=== PATIENT | male | born 1960 | race Caucasian/White ===

== ENCOUNTER 2019-06-19 16:47 | Emergency (ER) | payer BC, OTHER ==
--- NOTE | 2019-06-19 16:56 | ED Physician Documentation ---
PD HPI LOWER EXT INJURY - Stated complaint Stated Complaint: RIGHT LEG PX/KNEE PX - History obtained from History obtained from: Patient - History of Present Illness PD HPI LOW EXT INJURY LOCATION: Right, Upper leg, Knee Type of injury: Twist (he had felt tightness in hamstrings/posterior thigh for couple of weeks. Walking up onto busstep at work, he felt a snap/abrupt pain posterolateral knee, and has pain with walking since. Pain flexing knee. No feeling of giving out.) Where injury occurred: Work (getting off work) Timing - onset: Today Timing - details: Abrupt onset, Still present Worsened by: Moving, Other (weight bearing straight legged.) Associated symptoms: No: Weakness, Numbness, Swelling Similar symptoms before: Has not had sx before Recently seen: Not recently seen Review of Systems Constitutional: denies: Fever, Chills Skin: denies: Rash, Lesions Neurologic: denies: Focal weakness, Numbness PD PAST MEDICAL HISTORY - Past Medical History Cardiovascular: None Respiratory: None Endocrine/Autoimmune: None GI: None : None HEENT: None Psych: None Musculoskeletal: Other Derm: None - Past Surgical History Past Surgical History: Yes General: Other Ortho: ACL reconstruction - Present Medications Home Medications: Ambulatory Orders Medication Instructions Recorded Confirmed Silver Sulfadiazine Cream 1 gm TOP BID #1 tube 03/25/15 [Silvadene Cream] Sulfamethoxazole/Trimethoprim 1 each PO BID #10 tablet 03/25/15 [Sulfamethoxazole-Tmp Ds Tablet] Hydrocodone/Acetaminophen [[place] 1 each PO Q6H PRN #20 tablet 06/19/19 5-325 Tablet] Naproxen 500 mg PO BID #20 tablet 06/19/19 - Allergies Allergies/Adverse Reactions: Allergies Allergy/AdvReac Type Severity Reaction Status Date / Time No Known Drug Allergies Allergy Verified 06/19/19 17:01 - Social History Does the pt smoke?: No Smoking Status: Never smoker Does the pt have substance abuse?: No - Immunizations Immunizations are current?: Yes PD ED PE NORMAL - Vitals Vital signs reviewed: Yes - General General: Alert and oriented X 3, Well developed/nourished, Other (limping gait) - Derm Derm: Normal color, Warm and dry, No rash - Extremities Extremities: No edema, Other (tender at posterolateral right knee and proximal lower leg. Pain with flexion of knee against resistance. Some tender at fibular head area. The hamstring tendons feel intact at the posterior knee. No effusion. Cruciate testing is okay. ROtational movement of lower leg causes pain lateral knee, so consider meniscal vs LCL vs tendons. ) - Neuro Neuro: Alert and oriented X 3, No motor deficit, Normal speech Results - Vitals Vitals: Vital Signs - 24 hr 06/19/19 06/19/19 16:57 18:17 Temperature 36.6 C 37.0 C Heart Rate 73 60 Respiratory 19 14 Rate Blood Pressure 123/74 142/84 H O2 Saturation 95 97 Oxygen O2 Source Room air - Rads (name of study) knee xrayu Radiology: Prelim report reviewed (normal), See rad report PD MEDICAL DECISION MAKING - ED course Complexity details: reviewed results, considered differential (seems likely hamstring insertion with some strain or partial tear. Does not seem calf muscle per se. ), d/w patient Departure - Departure Disposition: 01 Home, Self Care Clinical Impression: Hamstring muscle strain Qualifiers: Encounter type: initial encounter Laterality: right Qualified Code(s): S76.311A - Strain of muscle, fascia and tendon of the posterior muscle group at thigh level, right thigh, initial encounter Condition: Stable Record reviewed to determine appropriate education?: Yes Instructions: ED Strain Muscle Ext Follow-Up: Wade Washburn MD [Provider Admit Priv/Credential] - Prescriptions: Hydrocodone/Acetaminophen [[place] 5-325 Tablet] 1 each PO Q6H PRN #20 tablet PRN Reason: Pain Naproxen 500 mg PO BID #20 tablet Comments: I think this is a strain and may be partial tear of the hamstring muscle insertion. Alternatives would be a lateral collateral ligament or less likely lateral meniscal injury. These would be treatable with the knee brace and limited use. Recheck is useful in the short-term to reassess how well it is healing. Use the knee brace when up and around for the next 1 to 2 weeks until fully better. This will help support the knee and in some of the muscles. Initially have it set limited from 0 to 15 degrees. He can increase the range as is feeling better. Anti-inflammatories naproxen twice daily for the next 7 to 10 days. Add Tylenol or hydrocodone as needed for pains. Limited standing and no squatting or lifting for a week until recheck. Recheck with occupational medicine or orthopedics in the next 5 to 7 days to see how well it is improving if any other treatment is needed. Forms: Activity restrictions Discharge Date/Time: 06/19/19 18:20
[2019-06-19] MEDS ORDERED: IBUPROFEN 800 MG TABLET PO STA (17:17)
[2019-06-19] MEDS ORDERED: ACETAMINOPHEN 325 MG TABLET PO STA (17:17)
--- NOTE | 2019-06-19 17:48 | XRAY Report ---
Reason: right lateral knee pain, onset when stepped/twist Procedure Date: 06/19/2019 Accession Number: [id number] / [id number] Procedure: XR - Knee 3 View RT CPT Code: FULL RESULT: EXAM: RIGHT KNEE RADIOGRAPHY EXAM DATE: 06/19/2019 05:37 PM. CLINICAL HISTORY: Right lateral knee pain, onset when stepped/twist. COMPARISON: None. TECHNIQUE: 3 views. FINDINGS: Bones: Normal. No fractures or bone lesions. Joints: Joint space and alignment appear satisfactory. Soft Tissues: Normal. No soft tissue swelling. IMPRESSION: 1. No fracture or subluxation. [facility]
[2019-06-19 18:20] VITALS: BP 142/84
== END 2019-06-19 18:20 | disposition home or self-care (01) ==
LOC: ED 16:47
DX: S76.311A Strain of muscle, fascia and tendon of the posterior muscle group at thigh level, right thigh, initial encounter (principal); M25.561 Pain in right knee; X50.1XXA Overexertion from prolonged static or awkward postures, initial encounter; Y93.01 Activity, walking, marching and hiking; Y99.0 Civilian activity done for income or pay
CPT/HCPCS: 73562; 99283; A9270